=== PATIENT | female | born 1980 | race Caucasian/White ===

== ENCOUNTER 2020-08-31 23:28 | Day surgery (SDC) | payer MEDICAID, OTHER ==
--- NOTE | 2020-09-01 00:20 | ED Physician Documentation ---
PD HPI ABD PAIN - Stated complaint Stated Complaint: ABD PAIN - Chief complaint Chief Complaint: Abd Pain - History obtained from History obtained from: Patient - History of Present Illness Timing - onset: Enter time (19:30), Today Timing - duration: Hours Timing - details: Gradual onset, Constant Pain level now: 8 Quality: Pain Location: All over / everywhere (predominantly across lower abdomen and worst in RLQ) Radiation: Other (does not radiate) Improved by: Laying still Worsened by: Moving, Palpation Associated symptoms: Nausea, Vomiting, Diarrhea. No: Fever Similar symptoms before: Has not had sx before Recently seen: Not recently seen - Additional information Additional information: c/o gradual onset abdominal pain across lower abdomen but greatest in RLQ, gradually and steadily worsening in intensity. Denies injury, denies h/o similar symptoms Review of Systems Constitutional: denies: Fever, Chills, Sweats Eyes: reports: Reviewed and negative Ears: reports: Reviewed and negative Nose: reports: Reviewed and negative Throat: reports: Reviewed and negative Cardiac: reports: Reviewed and negative Respiratory: reports: Reviewed and negative GI: reports: Abdominal Pain, Nausea, Vomiting, Diarrhea : denies: Dysuria, Frequency, Now EGA Skin: reports: Reviewed and negative Musculoskeletal: reports: Reviewed and negative Neurologic: reports: Reviewed and negative PD PAST MEDICAL HISTORY - Past Medical History Past Medical History: No - Past Surgical History Past Surgical History: No - Present Medications Home Medications: Ambulatory Orders Medication Instructions Recorded Confirmed Ondansetron Odt [Zofran Odt] 4 mg TL Q6H PRN #10 tablet 09/01/20 oxyCODONE [Roxicodone] 5 mg PO Q4-6H PRN #14 tablet 09/01/20 - Allergies Allergies/Adverse Reactions: Allergies Allergy/AdvReac Type Severity Reaction Status Date / Time No Known Drug Allergies Allergy Verified 05/06/14 19:15 - Social History Does the pt smoke?: No Smoking Status: Never smoker Does the pt drink ETOH?: Yes Does the pt have substance abuse?: No - Immunizations Immunizations are current?: No - POLST Patient has POLST: No PD ED PE NORMAL - Vitals Vital signs reviewed: Yes - General General: Alert and oriented X 3, Well developed/nourished, Other (obvious painful distress) - HEENT HEENT: Moist mucous membranes - Neck Neck: Supple, no meningeal sign - Cardiac Cardiac: RRR, No murmur, No gallop, No rub - Respiratory Respiratory: No respiratory distress, Clear bilaterally - Abdomen Abdomen: Normal bowel sounds, Soft, Non distended - Back Back: No CVA TTP - Derm Derm: Normal color, Warm and dry PD ED PE EXPANDED - Abdomen Abdomen: Tender to palpation (diffuse but mild across upper abdomen, moderate LLQ (with positive Rovsing's sign) and worst in RLQ with rebound limited to RLQ), Rebound Results - Vitals Vitals: Vital Signs - 24 hr 08/31/20 09/01/20 09/01/20 23:52 01:19 02:03 Temperature 37.2 C Heart Rate 101 H 88 82 Respiratory 22 16 16 Rate Blood Pressure 127/84 H 111/68 O2 Saturation 100 99 99 09/01/20 09/01/20 09/01/20 05:30 06:52 06:55 Temperature 37.4 C 37.4 C Heart Rate 87 86 81 Respiratory 16 12 12 Rate Blood Pressure 119/85 H 109/70 111/69 O2 Saturation 99 97 100 09/01/20 09/01/20 09/01/20 07:00 07:05 07:10 Temperature 37 C 37 C 37 C Heart Rate 82 96 86 Respiratory 12 12 14 Rate Blood Pressure 111/65 122/75 122/75 O2 Saturation 100 100 100 09/01/20 09/01/20 09/01/20 07:15 07:20 07:25 Temperature 37 C 37 C 37 C Heart Rate 81 75 74 Respiratory 15 14 14 Rate Blood Pressure 118/71 113/69 114/70 O2 Saturation 100 100 100 09/01/20 09/01/20 09/01/20 07:30 07:32 07:48 Temperature 36.9 C 36.9 C 36.9 C Heart Rate 73 76 71 Respiratory 15 14 11 L Rate Blood Pressure 111/71 109/68 111/63 O2 Saturation 100 100 98 Oxygen O2 Source Room air - Labs Labs: Laboratory Tests 09/01/20 09/01/20 09/01/20 00:05 00:05 00:05 WBC 14.7 H RBC 4.12 L Hgb 10.6 L Hct 33.4 L MCV 81.1 MCH 25.7 L MCHC 31.7 L RDW 15.6 H Plt Count 228 MPV 11.1 H Neut # (Auto) 12.4 H Lymph # (Auto) 1.4 L [place] # (Auto) 0.8 Eos # (Auto) 0.1 Baso # (Auto) 0.1 Absolute Nucleated RBC 0.00 Nucleated RBC % 0.0 Sodium 136 Potassium 3.0 L Chloride 102 Carbon Dioxide 24 Anion Gap 10.0 BUN 13 Creatinine 0.7 Estimated GFR (MDRD) 93 Glucose 111 H Calcium 8.9 Total Bilirubin 0.5 AST 18 ALT 19 Alkaline Phosphatase 47 Total Protein 7.7 Albumin 4.4 Globulin 3.3 Albumin/Globulin Ratio 1.3 Lipase 28 HCG, Quant < 0.60 Urine Color Urine Clarity Urine pH Ur Specific [place] Urine Protein Urine Glucose (UA) Urine Ketones Urine Occult Blood Urine Nitrite Urine Bilirubin Urine Urobilinogen Ur Leukocyte Esterase Ur Microscopic Review Urine Culture Comments 09/01/20 01:20 WBC RBC Hgb Hct MCV MCH MCHC RDW Plt Count MPV Neut # (Auto) Lymph # (Auto) [place] # (Auto) Eos # (Auto) Baso # (Auto) Absolute Nucleated RBC Nucleated RBC % Sodium Potassium Chloride Carbon Dioxide Anion Gap BUN Creatinine Estimated GFR (MDRD) Glucose Calcium Total Bilirubin AST ALT Alkaline Phosphatase Total Protein Albumin Globulin Albumin/Globulin Ratio Lipase HCG, Quant Urine Color YELLOW Urine Clarity CLEAR Urine pH 5.5 Ur Specific [place] 1.025 Urine Protein NEGATIVE Urine Glucose (UA) NEGATIVE Urine Ketones 40 H Urine Occult Blood NEGATIVE Urine Nitrite NEGATIVE Urine Bilirubin NEGATIVE Urine Urobilinogen 0.2 (NORMAL) Ur Leukocyte Esterase NEGATIVE Ur Microscopic Review NOT INDICATED Urine Culture Comments NOT INDICATED - Rads (name of study) CT A/P with IV contrast Radiology: Prelim report reviewed, See rad report PD MEDICAL DECISION MAKING - ED course Complexity details: reviewed results, re-evaluated patient, considered differential, d/w patient ED course: D/W Dr. Martinez, recommends Zosyn 3.375gm IV and hold in ED, will be in to evaluate patient Departure - Departure Disposition: ED Transfer to [facility] Clinical Impression: Appendicitis Qualifiers: Appendicitis type: acute appendicitis Acute appendicitis type: with localized peritonitis Appendicitis gangrene presence: without gangrene Appendicitis perforation presence: without perforation Appendicitis abscess presence: without abscess Qualified Code(s): K35.30 - Acute appendicitis with localized peritonitis, without perforation or gangrene Condition: Good Discharge Date/Time: 09/01/20 06:00
[2020-09-01] MEDS ORDERED: ONDANSETRON 4 MG/2 ML VIAL IVP STA (00:32)
[2020-09-01] MEDS ORDERED: HYDROmorphone 1 MG/ML CARPUJECT IVP STA ×2 (00:32→02:45)
[2020-09-01] MEDS ORDERED: SODIUM CHLORIDE 0.9% 1,000 ML IV STA (00:32)
[2020-09-01 00:51] LABS: BASOPHILS # (AUTO) 0.1 10^3/uL (0.0-0.1); BASOPHILS % (AUTO) 0.5 %; EOSINOPHILS # (AUTO) 0.1 10^3/uL (0.0-0.7); EOSINOPHILS % (AUTO) 0.5 %; HGB - HEMOGLOBIN 10.6 g/dL (12.0-16.0); LYMPHOCYTES # (AUTO) 1.4 10^3/uL (1.5-3.5); LYMPHOCYTES % (AUTO) 9.2 %; MEAN CORPUSCULAR HEMOGLOBIN 25.7 pg (27.0-31.0); MEAN CORPUSCULAR HGB CONC 31.7 g/dL (32.0-36.0); MEAN CORPUSCULAR VOLUME 81.1 fL (81.0-99.0); MEAN PLATELET VOLUME 11.1 fL (7.9-10.8); MONOCYTES # (AUTO) 0.8 10^3/uL (0.0-1.0); MONOCYTES % (AUTO) 5.6 %; NEUTROPHILS # (AUTO) 12.4 10^3/uL (1.5-6.6); NEUTROPHILS % (AUTO) 83.8 %; PLT - PLATELET COUNT 228 10^3/uL (130-450); RED BLOOD COUNT 4.12 10^6/uL (4.20-5.40); RED CELL DISTRIBUTION WIDTH 15.6 % (12.0-15.0); WHITE BLOOD COUNT 14.7 x10^3/uL (4.8-10.8)
[2020-09-01 01:02] LABS: ALBUMIN 4.4 g/dL (3.2-5.5); ALBUMIN/GLOBULIN RATIO 1.3 (1.0-2.2); BILIRUBIN,TOTAL 0.5 mg/dL (0.2-1.0); CALCIUM 8.9 mg/dL (8.5-10.3); CREATININE 0.7 mg/dL (0.4-1.0); TOTAL PROTEIN 7.7 g/dL (6.7-8.2)
[2020-09-01 01:25] LABS: BILIRUBIN,URINE NEGATIVE (NEGATIVE); CLARITY,URINE CLEAR (CLEAR); GLUCOSE, URINE (UA) NEGATIVE (NEGATIVE); KETONES,URINE (UA) 40 mg/dL (NEGATIVE); LEUKOCYTE ESTERASE, URINE NEGATIVE (NEGATIVE); NITRITE,URINE NEGATIVE (NEGATIVE); OCCULT BLOOD,URINE NEGATIVE (NEGATIVE); PH,URINE 5.5 PH (5.0-7.5); PROTEIN,URINE NEGATIVE (NEGATIVE); UROBILINOGEN,URINE 0.2 (NORMAL) E.U./dL (NORMAL)
[2020-09-01] MEDS ORDERED: IOVERSOL 320 100 ML VIAL IVP ONE ×2 (01:29→01:57)
[2020-09-01] MEDS ORDERED: PIPERACILLIN/TAZOBACTAM 3.375 GM in SODIUM CHLORIDE 0.9% MINIBAG 100 ML IV STA (02:38)
[2020-09-01] MEDS ORDERED: LACTATED RINGERS 1,000 ML IV SCH ×2 (04:00→07:00)
--- NOTE | 2020-09-01 05:07 | HISTORY & PHYSICAL EXAMINATION ---
HPI - Admitted From Admitted from: ED - History Obtained From Records Reviewed: RN notes reviewed History obtained from: Patient Exam limitations: No limitations - History of Present Illness Severity at the worst: reports: Severe Pain Quality: reports: Aching, Cramping Context-Pain started w/: reports: Rest Timing: reports: Gradual onset Duration: reports: Hours: (10 hours) Improved with: reports: Nothing Worsened by: reports: Movement, Palpation Associated symptoms: reports: Nausea, Vomiting HPI Comment/Other: Gradual onset of RLQ pain associated with nausea vomiting and diarrhea. Denies sick contacts. No similar episodes in the past. PMH/PSH - Past Medical History MRSA Hx?: No Social & Family Hx - Social History Does the pt smoke?: No Smoking Status: Never smoker Does the pt drink ETOH?: Yes Does the pt have substance abuse?: No - POLST Patient has POLST: No Meds/Allgy - Home Medications Home Medications: Ambulatory Orders Medication Instructions Recorded Confirmed No Known Home Medications 05/06/14 05/06/14 - Allergies Allergies/Adverse Reactions: Allergies Allergy/AdvReac Type Severity Reaction Status Date / Time No Known Drug Allergies Allergy Verified 05/06/14 19:15 Review of Systems - Constitutional Constitutional: reports: Fatigue, Poor appetite - Eyes Eyes: denies: Blurred vision - Ears, Nose & Throat Ears, Nose & Throat: denies: Tinnitus, Vertigo - Cardiovascular Cariovascular: denies: Irregular heart rate, Palpitations, Chest pain, Lightheadedness - Respiratory Respiratory: denies: Cough, Sputum production, Wheezing, Snoring, Orthopnea - Gastrointestinal Gastrointestinal: reports: Abdominal pain, Diarrhea, Nausea, Vomiting - Genitourinary Genitourinary: denies: Dysuria, Frequency - Musculoskeletal Musculoskeletal: denies: Muscle pain, Back pain - Integumentary Integumentary: denies: Rash, Pruritis - Neurological Neurological: denies: General weakness, Focal weakness - Hematologic/Lymphatic Hematologic/Lymphatic: denies: Anemia, Bruising - All Other Systems All Other Systems: reports: Reviewed and negative Exam - Vital Signs Reviewed Vital Signs: Yes Vital Signs: Vital Signs x48h Temp Pulse Resp BP Pulse Ox 09/01/20 02:03 82 16 111/68 99 09/01/20 01:19 88 16 99 08/31/20 23:52 37.2 C 101 H 22 127/84 H 100 - Physical Exam General Appearance: positive: Alert, Mild distress Eyes Bilateral: positive: Normal inspection, PERRL, EOMI ENT: positive: ENT inspection nml, Pharynx nml, No signs of dehydration Neck: positive: Nml inspection, Thyroid nml, No JVD, Trachea midline Respiratory: positive: Chest non-tender, No respiratory distress, Breath sounds nml Cardiovascular: positive: Regular rate & rhythm, No murmur Peripheral Pulses: positive: 2+ Abdomen: positive: Tenderness, Guarding, Rebound Back: negative: CVA tenderness (R), CVA tenderness (L) Skin: positive: Color nml, No rash Extremities: positive: Non-tender, Full ROM Neurologic/Psychiatric: positive: Oriented x3 Results - Lab Results Lab results reviewed: Yes Fish Bones: 09/01/20 00:05 09/01/20 00:05 Other Lab Results: Lab Results x24hrs 09/01/20 09/01/20 09/01/20 Range/Units 01: 00:05 00:05 WBC (4.8-10.8) x10^3/uL RBC (4.20-5.40) 10^6/uL Hgb (12.0-16.0) g/dL Hct (37.0-47.0) % MCV (81.0-99.0) fL MCH (27.0-31.0) pg MCHC (32.0-36.0) g/dL RDW (12.0-15.0) % Plt Count (130-450) 10^3/uL MPV (7.9-10.8) fL Neut # (Auto) (1.5-6.6) 10^3/uL Lymph # (Auto) (1.5-3.5) 10^3/uL [place] # (Auto) (0.0-1.0) 10^3/uL Eos # (Auto) (0.0-0.7) 10^3/uL Baso # (Auto) (0.0-0.1) 10^3/uL Absolute Nucleated RBC x10^3/uL Nucleated RBC % /100WBC Sodium 136 (135-145) mmol/L Potassium 3.0 L (3.5-5.0) mmol/L Chloride 102 (101-111) mmol/L Carbon Dioxide 24 (21-32) mmol/L Anion Gap 10.0 (6-13) BUN 13 (6-20) mg/dL Creatinine 0.7 (0.4-1.0) mg/dL Estimated GFR (MDRD) 93 (>89) Glucose 111 H (70-100) mg/dL Calcium 8.9 (8.5-10.3) mg/dL Total Bilirubin 0.5 (0.2-1.0) mg/dL AST 18 (10-42) IU/L ALT 19 (10-60) IU/L Alkaline Phosphatase 47 (42-121) IU/L Total Protein 7.7 (6.7-8.2) g/dL Albumin 4.4 (3.2-5.5) g/dL Globulin 3.3 (2.1-4.2) g/dL Albumin/Globulin Ratio 1.3 (1.0-2.2) Lipase 28 (22-51) U/L HCG, Quant < 0.60 mIU/mL Urine Color YELLOW Urine Clarity CLEAR (CLEAR) Urine pH 5.5 (5.0-7.5) PH Ur Specific [place] 1.025 (1.002-1.030) Urine Protein NEGATIVE (NEGATIVE) mg/dL Urine Glucose (UA) NEGATIVE (NEGATIVE) mg/dL Urine Ketones 40 H (NEGATIVE) mg/dL Urine Occult Blood NEGATIVE (NEGATIVE) Urine Nitrite NEGATIVE (NEGATIVE) Urine Bilirubin NEGATIVE (NEGATIVE) Urine Urobilinogen 0.2 (NORMAL) (NORMAL) E.U./dL Ur Leukocyte Esterase NEGATIVE (NEGATIVE) Ur Microscopic Review NOT INDICATED Urine Culture Comments NOT INDICATED 09/01/20 Range/Units 00:05 WBC 14.7 H (4.8-10.8) x10^3/uL RBC 4.12 L (4.20-5.40) 10^6/uL Hgb 10.6 L (12.0-16.0) g/dL Hct 33.4 L (37.0-47.0) % MCV 81.1 (81.0-99.0) fL MCH 25.7 L (27.0-31.0) pg MCHC 31.7 L (32.0-36.0) g/dL RDW 15.6 H (12.0-15.0) % Plt Count 228 (130-450) 10^3/uL MPV 11.1 H (7.9-10.8) fL Neut # (Auto) 12.4 H (1.5-6.6) 10^3/uL Lymph # (Auto) 1.4 L (1.5-3.5) 10^3/uL [place] # (Auto) 0.8 (0.0-1.0) 10^3/uL Eos # (Auto) 0.1 (0.0-0.7) 10^3/uL Baso # (Auto) 0.1 (0.0-0.1) 10^3/uL Absolute Nucleated RBC 0.00 x10^3/uL Nucleated RBC % 0.0 /100WBC Sodium (135-145) mmol/L Potassium (3.5-5.0) mmol/L Chloride (101-111) mmol/L Carbon Dioxide (21-32) mmol/L Anion Gap (6-13) BUN (6-20) mg/dL Creatinine (0.4-1.0) mg/dL Estimated GFR (MDRD) (>89) Glucose (70-100) mg/dL Calcium (8.5-10.3) mg/dL Total Bilirubin (0.2-1.0) mg/dL AST (10-42) IU/L ALT (10-60) IU/L Alkaline Phosphatase (42-121) IU/L Total Protein (6.7-8.2) g/dL Albumin (3.2-5.5) g/dL Globulin (2.1-4.2) g/dL Albumin/Globulin Ratio (1.0-2.2) Lipase (22-51) U/L HCG, Quant mIU/mL Urine Color Urine Clarity (CLEAR) Urine pH (5.0-7.5) PH Ur Specific [place] (1.002-1.030) Urine Protein (NEGATIVE) mg/dL Urine Glucose (UA) (NEGATIVE) mg/dL Urine Ketones (NEGATIVE) mg/dL Urine Occult Blood (NEGATIVE) Urine Nitrite (NEGATIVE) Urine Bilirubin (NEGATIVE) Urine Urobilinogen (NORMAL) E.U./dL Ur Leukocyte Esterase (NEGATIVE) Ur Microscopic Review Urine Culture Comments - Diagnostic Imaging Results Diagnostic Imaging Results Comments: Findings consistent with early acute appendicitis and mild constipation Impression/Plan - Problem List Problem List: Acute appendicitis in the setting of an otherwise healthy 39 year old lady. We discussed the risks and benefits of laparoscopy with appendectomy and the patient has expressed a desire to complete the procedure this morning. Verbal and written consent were obtained.
--- NOTE | 2020-09-01 05:35 | ANESTHESIA ---
Pre-Anesthesia VS, & Labs - Diagnosis acute appedicitis - Procedure laparoscopic appendectomy Vital Signs: Temp Pulse Resp BP Pulse Ox 37.2 C 87 16 119/85 H 99 08/31/20 23:52 09/01/20 05:30 09/01/20 05:30 09/01/20 05:30 09/01/20 05:30 Height: 5 ft 8 in Weight (kg): 65.771 kg Body Mass Index: 22.0 BMI Classification: Healthy weight - NPO >8 hours - Is Patient ?: No - Lab Results Current Lab Results: Laboratory Tests 09/01/20 00:05: HCG, Quant < 0.60 09/01/20 00:05: Sodium 136, Potassium 3.0 L, Chloride 102, Carbon Dioxide 24, Anion Gap 10.0, BUN 13, Creatinine 0.7, Estimated GFR (MDRD) 93, Glucose 111 H, Calcium 8.9, Total Bilirubin 0.5, AST 18, ALT 19, Alkaline Phosphatase 47, Total Protein 7.7, Albumin 4.4, Globulin 3.3, Albumin/Globulin Ratio 1.3, Lipase 28 09/01/20 00:05: WBC 14.7 H, RBC 4.12 L, Hgb 10.6 L, Hct 33.4 L, MCV 81.1, MCH 25.7 L, MCHC 31.7 L, RDW 15.6 H, Plt Count 228, MPV 11.1 H, Neut # (Auto) 12.4 H , Lymph # (Auto) 1.4 L, [place] # (Auto) 0.8, Eos # (Auto) 0.1, Baso # (Auto) 0.1, Absolute Nucleated RBC 0.00, Nucleated RBC % 0.0 Lab results reviewed: Yes Fish Bones: 09/01/20 00:05 09/01/20 00:05 Home Medications and Allergies Active Medications Lactated Ringer's (Lr) 1,000 mls @ 125 mls/hr IV .Q8H JAVIER Last Admin: 09/01/20 04:52 Dose: 125 mls/hr Documented by: No Known Home Medications 05/06/14 Allergies/Adverse Reactions: Allergies Allergy/AdvReac Type Severity Reaction Status Date / Time No Known Drug Allergies Allergy Verified 05/06/14 19:15 Anes History & Medical History - Anesthetic History Anesthesia Complications: reports: No previous complications Family history of Anesthesia Complications: Denies Family history of Malignant Hyperthermia: Denies - Medical History Cardiovascular: reports: None Pulmonary: reports: None Gastrointestinal: reports: Other (appendicitis) Urinary: reports: None Neuro: reports: None Musculoskeletal: reports: None Endocrine/Autoimmune: reports: None Blood Disorders: reports: None Smoking Status: Never smoker Psychosocial: reports: Alcohol (social) History of Cancer?: No Exam General: Alert, Oriented x3, Cooperative Dental: WNL Mouth Opening: Greater than 4 Fingerbreadths Neck Mobility: Normal Mallampati classification: II Thyromental Distance: greater than 6 cm Respiratory: Lungs clear, Normal breath sounds, No respiratory distress Cardiovascular: Regular rate Neurological: Normal speech Mental/Cognitive Status: Alert/Oriented X3, Normal for patient Cognitive Status: Within normal limits Plan Anesthesia Type: General Consent for Procedure(s) Verified and Reviewed: Yes Code Status: Attempt Resuscitation ASA classification: 1-Healthy patient Is this case an emergency?: Yes
[2020-09-01] MEDS ORDERED: BUPIVACAINE 0.5% PF 30 ML VIAL ONE (05:50)
[2020-09-01] MEDS ORDERED: LIDOCAINE 1%-EPI 1:100000 20 ML MDV ONE (05:50)
[2020-09-01] MEDS ORDERED: ROCURONIUM 50 MG/5 ML VIAL IVP ONE (06:05)
[2020-09-01] MEDS ORDERED: PROPOFOL 200 MG/20 ML VIAL IVP ONE (06:05)
[2020-09-01] MEDS ORDERED: KETOROLAC 30 MG/ML VIAL IVP ONE (06:05)
[2020-09-01] MEDS ORDERED: ONDANSETRON 4 MG/2 ML VIAL IVP ONE (06:05)
[2020-09-01] MEDS ORDERED: MIDAZOLAM 2 MG/2 ML VIAL IVP ONE (06:05)
[2020-09-01] MEDS ORDERED: DEXAMETHASONE 4 MG/ML VIAL IVP ONE (06:05)
[2020-09-01] MEDS ORDERED: fentaNYL 100 MCG/2 ML VIAL IVP ONE (06:05)
[2020-09-01] MEDS ORDERED: METOCLOPRAMIDE 10 MG/2 ML VIAL IVP PRN (06:26)
[2020-09-01] MEDS ORDERED: HYDROmorphone 0.5 MG/0.5 ML SYRINGE IVP PRN (06:26)
[2020-09-01] MEDS ORDERED: fentaNYL 100 MCG/2 ML VIAL IVP PRN (06:26)
[2020-09-01] MEDS ORDERED: ATROPINE ABBOJECT 1 MG/10 ML SYRINGE IVP PRN (06:26)
[2020-09-01] MEDS ORDERED: MORPHINE 2 MG/ML CARPUJECT IVP PRN (06:26)
[2020-09-01] MEDS ORDERED: NALOXONE 0.4 MG/ML VIAL IVP PRN (06:26)
[2020-09-01] MEDS ORDERED: ONDANSETRON 4 MG/2 ML VIAL IVP PRN ×2 (06:26→06:47)
[2020-09-01] MEDS ORDERED: ePHEDrine 50 MG/ML VIAL IVP PRN (06:26)
[2020-09-01] MEDS ORDERED: LIDOCAINE 1%-EPI 1:100000 20 ML MDV SUBQ ONE (06:43)
[2020-09-01] MEDS ORDERED: BUPIVACAINE 0.5% PF 30 ML VIAL SUBQ ONE (06:44)
[2020-09-01] MEDS ORDERED: SUGAMMADEX 200 MG/2 ML VIAL IVP ONE (06:44)
--- NOTE | 2020-09-01 06:46 | OPERATIVE REPORT ---
Operative Report - General Procedure Date: 09/01/20 Planned Procedure: Laparoscopic appendectomy Pre-Op Diagnosis: Acute appendicitis Procedure Performed: Laparoscopic appendectomy Post Op Diagnosis: Acute appendicitis - Procedure Note Primary Surgeon: Michelle Anesthesia Provider: VITOR Rodriguez Anesthesia Technique: General ET tube Pathology: Appendix in formalin to pathology Estimated Blood Loss (mL): 5 Findings: Early acute appendicitis without perforation Complications: None apparent - Other Other Information/Narrative: After obtaining informed consent, the patient is brought to the operating room and placed in the supine position on the operating table. Following successful induction of general endotracheal anesthesia, appropriate padding of all bony prominences, and placement of appropriate monitors, the abdomen was prepped and draped in the standard surgical fashion. A timeout was held per scope protocol. All elements of the surgical safety checklist were followed before, during, and after the procedure. Following infiltration with local anesthetic to create a field block, an incision was created inferior to the umbilicus and carried down through the skin and subcutaneous tissue to reveal the fascia below. 2-0 Vicryl retention sutures were placed on either side of the midline and the abdomen was entered under direct vision using a 15 blade scalpel. A 10 mm blunt Laird balloon trocar was placed in the abdominal cavity and it was insufflated to 15 mmHg pressure. The patient was placed in Trendelenburg position with the left side rotated toward the floor. The camera was placed in the abdominal cavity and we immediately visualized the cecum in the right lower quadrant. It was rotated medially to reveal a somewhat dilated and turgid appendix. The appendix was grasped and elevated revealing its attachment to the cecum. A window was created in the mesoappendix at this location. A laparoscopic stapling device was used to ligate the appendix and liberated from its attachment to the cecum. An additional load of the device were used to divide its mesentery.The appendix was placed in an Endo Catch bag and removed via the umbilical port with a camera in the epigastric position. The camera was replaced in the operative site examined. It was irrigated with warm saline solution and aspirated free of all fluid and particulate matter. The table was flattened and the abdomen evaluated once again. The trochars were removed under direct vision and abdomen was desufflated. The umbilical incision was closed with interrupted Vicryl suture and Monocryl stitches were placed in the skin. All sponge, needles, and instrument counts were correct at the conclusion of the case. The patient was allowed to wake from anesthesia without difficulty and taken to the postanesthesia care unit in good condition.
[2020-09-01] MEDS ORDERED: IBUPROFEN 600 MG TABLET PO PRN (06:47)
[2020-09-01] MEDS ORDERED: oxyCODONE 5 MG TABLET PO PRN (06:47)
[2020-09-01] MEDS ORDERED: ACETAMINOPHEN 325 MG TABLET PO PRN (06:47)
[2020-09-01] MEDS ORDERED: LACTATED RINGERS 1,000 ML IV ONE ×2 (06:55→07:06)
--- NOTE | 2020-09-01 08:02 | CT Report ---
PROCEDURE: Abdomen/Pelvis W INDICATIONS: RLQ pain, tenderness CONTRAST: IV CONTRAST: Optiray 320 ml: 100 PO CONTRAST: *NO PO CONTRAST TECHNIQUE: After the administration of contrast, 5 mm thick sections acquired from the diaphragms to the sym physis. 5 mm thick coronal and sagittal reformats were acquired. For radiation dose reduction, the following was used: automated exposure control, adjustment of mA and/or kV according to patient size . COMPARISON: None. FINDINGS: Image quality: Excellent. ABDOMEN: Lung bases: Mild atelectasis at lung bases. Heart size is normal. Solid organs: There is a 6 mm low-density nodule in the left hepatic lobe, most likely a cyst. Liver and spleen are normal in size and enhancement. Gallbladder is normal. Biliary system is non dilate d. Pancreas enhances normally. No adrenal nodules. Kidneys demonstrate normal size and enhancement , without hydronephrosis. Peritoneum and bowel: Appendix is mildly enlarged measuring 9 mm in diameter. There is appendiceal w all thickening and mild periappendiceal stranding consistent with acute appendicitis. Trace amount of free fluid is present. No organized fluid collections to suggest abscess. No free air. Bowel loops d emonstrate normal caliber. Nodes and vessels: No retroperitoneal or mesenteric adenopathy by size criteria. Aorta and inferior vena cava are normal in size. Miscellaneous: No ventral hernias. PELVIS: Genitourinary: Bladder wall thickness is normal. There is a 3 cm submucosal uterine fibroid. A 2 mm cyst with peripheral enhancement is seen in the left ovary, most likely a corpus luteum. Miscellaneous: No inguinal hernias or adenopathy. Bones: No suspicious bony lesions. No vertebral body compression fractures. IMPRESSION: 1. Acute appendicitis. No appendiceal perforation or abscess. 2. Myomatous uterus. No significant discrepancy with the preliminary interpretation. Reviewed by: Alton Carlisle MD on 09/01/2020 8:00 AM [facility] Approved by: Alton Carlisle MD on 09/01/2020 8:00 AM PST Station ID: [id number]
--- NOTE | 2020-09-01 08:02 | ANESTHESIA POST OP EVALUATION ---
Anesthesia Post Eval - Post Anesthesia Eval Vitals: Last Vital Signs Temp 36.9 C 09/01/20 07:48 Pulse 71 09/01/20 07:48 Resp 11 L 09/01/20 07:48 BP 111/63 09/01/20 07:48 Pulse Ox 98 09/01/20 07:48 CV Function Including HR & BP: positive: Stable Pain Control: positive: Satisfactory Nausea & Vomiting: positive: Negative Mental Status: positive: Baseline Respiratory Status: Airway Patent Hydration Status: Satisfactory Anesthesia Complications: positive: None
[2020-09-01 09:51] VITALS: BP 111/65
== END 2020-09-01 04:51 | disposition home or self-care (01) ==
LOC: ED 23:28 → SDS 09-01 04:50
PROVIDERS: ATTEND Surgery
PROC: 0DTJ4ZZ Resection of Appendix, Percutaneous Endoscopic Approach (ICD-10-PCS; principal; 2020-08-31)
DX: K35.80 Unspecified acute appendicitis (principal)
CPT/HCPCS: 36415; 44970; 74177; 80053; 81003; 83690; 84702; 85025; 96374; 96376; 99284; 99285; J1170; J7120; Q9967; 81001; 87086

== ENCOUNTER 2020-09-23 09:00 | Outpatient (CLI) | payer OTHER | END 2020-09-23 23:59 | disposition home or self-care (01) | LOC: LAB.R 09:00 | PROVIDERS: ATTEND Physician Assistant Medical | DX: M54.9 Dorsalgia, unspecified (principal); R30.0 Dysuria | CPT/HCPCS: 87086 ==

== ENCOUNTER 2021-06-10 13:52 | Outpatient (CLI) | payer OTHER ==
[2021-06-14 10:41] LABS: ANA SCREEN NEGATIVE (NEGATIVE)
== END 2021-06-10 13:53 | disposition home or self-care (01) ==
LOC: LAB.S 13:52
PROVIDERS: ATTEND Nurse Practitioner Family
DX: G24.5 Blepharospasm (principal)
CPT/HCPCS: 36415; 81599; 85651; 86038; 86140; 86200; 86431

== ENCOUNTER 2024-03-11 15:35 | Outpatient (CLI) | payer OTHER ==
--- NOTE | 2024-03-12 15:09 | MRI Report ---
PROCEDURE: Shoulder LT WO INDICATIONS: SHOULDER PAIN TECHNIQUE: Noncontrast oblique coronal T2 fast spin echo with fat saturation, oblique sagittal T1 spin echo and T2 fast spin echo with fat saturation, axial T1 spin echo and T2 fast spin echo with fat saturation t hrough the shoulder. COMPARISON: None. FINDINGS: Image quality: Excellent. Rotator cuff: Low-grade articular surface partial-thickness involving distal supraspinatus at its ins ertion on humeral head is seen. Distal infraspinatus and subscapularis tendinosis is noted. No full-t hickness rotator cuff tendon rupture. No rotator cuff muscle atrophy on sagittal images. Bones and bursae: No bone marrow contusions or fractures. No acromioclavicular joint degeneration. The acromion demonstrates conventional anatomy, without an os acromiale. Trace amount of subacromial subdeltoid bursal fluid is seen, no loose bodies. Capsule and soft tissues: In the absence of intra-articular contrast, the labrum and glenohumeral li gaments appear intact. The long head of the biceps tendon is mildly thickened. The rotator interval appears normal, without fibrosis. The coracohumeral ligament is normal in thickness. IMPRESSION: 1. Low-grade articular surface partial-thickness tear involving distal supraspinatus. Distal infraspi natus and subscapularis tendinosis. No full-thickness rotator cuff tendon rupture. 2. No marrow edema. No fracture or dislocation. Trace amount of subacromial subdeltoid bursal fluid. No loose bodies. 3. No evidence of focal labral tear. 4. Proximal long head of biceps tendinosis. Reviewed by: Clyde Bueno MD on 03/12/2024 3:07 PM PDT Approved by: Clyde Bueno MD on 03/12/2024 3:07 PM PDT Station ID: [id number]
== END 2024-03-11 15:36 | disposition home or self-care (01) ==
LOC: DI 15:35
PROVIDERS: ATTEND Registered Nurse
DX: M75.112 Incomplete rotator cuff tear or rupture of left shoulder, not specified as traumatic (principal); M67.922 Unspecified disorder of synovium and tendon, left upper arm

== ENCOUNTER 2024-07-18 09:23 | Outpatient (CLI) | payer OTHER ==
--- NOTE | 2024-07-19 08:33 | Mammography Report ---
BILATERAL FIRST EVER DIGITAL SCREENING MAMMOGRAM 3D/2D: 07/18/2024 CLINICAL: Baseline exam. Routine screening. No prior exams were available for comparison. The breasts are heterogeneously dense, which may obscure small masses (category c / 51-75% glandular tissue). No significant masses, calcifications, or other findings are seen in either breast. IMPRESSION: NEGATIVE There is no mammographic evidence of malignancy. A 1 year screening mammogram is recommended. Based on the Tyrer Cuzick model (a risk assessment model) the patient's lifetime risk is 13.3% and he r 10 year risk is 2.3%. According to the ACR, ACS, and NCCN guidelines, an annual breast MRI exam lyn ng with mammogram is recommended if the patient's lifetime risk is 20% or greater. This exam was interpreted at Station ID: [id number]. NOTE: For mammograms, a report in lay terms will be sent to the patient. Approximately 15% of breast malignancies will not be visualized mammographically. In the management of a palpable breast mass, a negative mammogram must not discourage biopsy of a clinically suspicious lesion. Electronically Signed By: Libby Beverly M.D., Ph.D. eb/mirella:07/19/2024 07:48:19 letter sent: No_Letter ACR BI-RADS Category 1: Negative PARENCHYMAL PATTERN: (D) - The breast(s) demonstrate(s) heterogeneously dense fibroglandular parpatricky ma. BI-RADS CATEGORY: (1) - 1 RECOMMENDATION: (ANNUAL) - Recommend routine annual screening mammography. [id number] 1 year screening LATERALITY: (B)
== END 2024-07-18 09:24 | disposition home or self-care (01) ==
LOC: DI 09:23
PROVIDERS: ATTEND Registered Nurse
DX: Z12.31 Encounter for screening mammogram for malignant neoplasm of breast (principal); R92.333 Mammographic heterogeneous density, bilateral breasts